=== PATIENT | male | born 1940 | race Caucasian/White ===

== ENCOUNTER 2016-07-06 12:59 | Day surgery (SDC) | payer MEDICARE, MEDICAID ==
[2016-07-03 11:30] VITALS: BMI 20.2
[2016-07-06] MEDS ORDERED: Midazolam 2 MG/2 ML VIAL ONE (16:00)
[2016-07-06] MEDS ORDERED: Iohexol 350mg/ml 100 ML ONE (16:01)
--- NOTE | 2016-07-06 20:15 | CARDCATH ---
PROCEDURE DATE: 07/06/2016 This is a 75-year-old [place] male with positive stress test outpatient who underwent a left heart c atheterization. After catheterization was done to the right femoral artery, the right femoral artery was cleaned and draped. A #6 introducer sheath was inserted without any complication and manual pre ssure was used post-cath. Judkin's was used for right and left and a pigtail for LV angiogram. Left main is a normal vessel. LAD wraps around the apex in the mid region. At the origin of the sec ond diagonal, there is a long lesion of about 80% LAD lesion. The first diagonal at its origin is ab out 90%. The rest of the LAD appears normal but slightly atherosclerotic. Circumflex is a large ves rubia and the first OM has about 40% lesion at its origin. The right coronary artery is a dominant ves rubia, slightly atherosclerotic in the beginning part of the segment. There are not any lesions in the main trunk or in the braches. There are some collaterals to the circumflex artery. LV angiogram sh ows normal wall motion with EF of more than 55%. FINAL CONCLUSION: 1. Single vessel disease, significant LAD mid lesion with the branch OM significant. 2. Nonsignificant RCA and circumflex lesion. Normal left ejection fraction. PLAN: Discussed with kst operator. The patient will need angioplasty with stent in t he LAD lesion. Cortes Pendleton MD cc: [id number] TT: 07/06/2016 20:14:01 [email or web address]
[2016-07-06 22:07] VITALS: BP 156/77; PULSE 87; RESP 18; TEMP 98.8; O2SAT 94
== END 2016-07-06 22:00 | disposition home or self-care (01) ==
LOC: C.CATHLAB 12:59
PROVIDERS: ATTEND Internal Medicine Cardiovascular Disease
DX: I25.10 Atherosclerotic heart disease of native coronary artery without angina pectoris (principal)
CPT/HCPCS: 93458; C1769; C1887; J1644; J2250; J3010; Q9967

== ENCOUNTER 2018-05-07 07:16 | Outpatient (CLI) | payer MEDICARE, MEDICAID | END 2018-05-07 07:17 | disposition home or self-care (01) | LOC: C.CTH 07:16 ==

== ENCOUNTER 2018-07-12 08:09 | Outpatient (CLI) | payer MEDICARE, MEDICAID | END 2018-07-12 08:10 | disposition home or self-care (01) | LOC: C.CTH 08:09 | DX: N28.89 Other specified disorders of kidney and ureter (principal) ==